=== PATIENT | female | born 1960 | race African-American/Black ===

== ENCOUNTER 2022-04-24 07:30 | Day surgery (SDC) | payer OTHER ==
[2022-04-21 16:36] VITALS: BMI 34.4
[2022-04-24] MEDS ORDERED: PROPOFOL 120 ML ONE (07:42)
[2022-04-24] MEDS ORDERED: LIDOCAINE HCL/PF 2% SDV 5ML VIAL ONE (07:42)
[2022-04-24 07:49] VITALS: RESP 18
[2022-04-24 08:57] VITALS: TEMP 97.3
[2022-04-24 09:10] VITALS: BP 112/50; PULSE 82
== END 2022-04-24 09:28 | disposition home or self-care (01) ==
LOC: FASU-ENDO 07:30
PROVIDERS: ATTEND Internal Medicine Gastroenterology
PROC: 0DJD8ZZ Inspection of Lower Intestinal Tract, Via Natural or Artificial Opening Endoscopic (ICD-10-PCS; principal; 2022-04-24 08:25)
DX: Z12.11 Encounter for screening for malignant neoplasm of colon (principal)